=== PATIENT | female | born 2000 | race Caucasian/White ===

== ENCOUNTER 2020-05-22 11:53 | Emergency (ER) | payer OTHER ==
[~2020-05-22 11:53] MED LIST: BACTRIM DS TAB1 EACH PO
[2020-05-22 12:28] LABS: BILIRUBIN NEGATIVE (NEGATIVE); BLOOD 3+ Ery/uL (NEGATIVE); CLARITY CLEAR (CLEAR); COLOR YELLOW (YELLOW); GLUCOSE (U) NORMAL (NORMAL); LEUKOCYTES NEGATIVE Leu/uL (NEGATIVE); NITRITE NEGATIVE (NEGATIVE); PROTEIN NEGATIVE (NEGATIVE); SPECIFIC GRAVITY >=1.030 (1.001-1.030); UROBILINOGEN 0.2 mg/dL (0.2-1.0)
[2020-05-22 12:44] LABS: BACTERIA TRACE; URINARY RBC 20-50
[2020-05-22 12:54] LABS: BASOPHIL 0.3 % (0-2); HCT 42.2 % (37.0-47.0); HGB 14.1 g/dl (12.5-16.0); LYMPHOCYTE 22.7 % (15-48); MCH 31.9 pg (25.0-31.0); MCHC 33.4 g/dL (32.0-36.0); MCV 95.5 fL (78.0-100.0); MONOCYTE 7.6 % (0-12); MPV 10.1 fL (6.0-9.5); NEUTROPHIL 67.2 % (41-80); NRBC 0; PLT 289 K/uL (150-400); RBC 4.42 M/uL (4.20-5.40); RDW 12.7 % (11.5-14.0)
== END 2020-05-22 13:47 | disposition left against medical advice (07) ==
LOC: FER 11:53
PROVIDERS: Emergency Medicine
DX: N93.8 Other specified abnormal uterine and vaginal bleeding (principal); M54.5 Low back pain; F17.200 Nicotine dependence, unspecified, uncomplicated; Z88.0 Allergy status to penicillin; Z53.8 Procedure and treatment not carried out for other reasons
CPT/HCPCS: 36415; 81001; 84703; 85025; 99284

== ENCOUNTER 2020-07-04 05:28 | Emergency (ER) | payer OTHER ==
[2020-07-04 06:34] LABS: BASOPHIL 0.4 % (0-2); HCT 41.2 % (37.0-47.0); HGB 13.9 g/dl (12.5-16.0); LYMPHOCYTE 29.1 % (15-48); MCH 31.7 pg (25.0-31.0); MCHC 33.7 g/dL (32.0-36.0); MCV 94.1 fL (78.0-100.0); MONOCYTE 5.8 % (0-12); NEUTROPHIL 63.6 % (41-80); NRBC 0; PLT 333 K/uL (150-400); RBC 4.38 M/uL (4.20-5.40); RDW 12.3 % (11.5-14.0); WBC 7.2 K/uL (4.0-10.5)
== END 2020-07-04 07:58 | disposition home or self-care (01) ==
LOC: FER 05:28
PROVIDERS: Emergency Medicine
DX: K29.70 Gastritis, unspecified, without bleeding (principal); F10.10 Alcohol abuse, uncomplicated; F17.200 Nicotine dependence, unspecified, uncomplicated; Y90.6 Blood alcohol level of 120-199 mg/100 ml; Z88.0 Allergy status to penicillin
CPT/HCPCS: 36415; 85025; 99284; G0480

== ENCOUNTER 2020-10-11 17:23 | Emergency (ER) | payer OTHER | END 2020-10-11 19:13 | disposition home or self-care (01) | LOC: FER 17:23 | DX: U07.1 COVID-19 (principal); Z88.0 Allergy status to penicillin | CPT/HCPCS: 99283; U0002 ==